=== PATIENT | female | born 2000 | race Caucasian/White ===

== ENCOUNTER 2021-11-09 11:37 | Emergency (ER) | payer MEDICAID, SELFPAY ==
--- NOTE | ~2021-11-09 | US_ITS ---
EXAMINATION: US OB <=14 wk fetus w TV INDICATION: 8 weeks preg, no US, current cramping. LMP 08/14/2021. GA by LMP 12 weeks 3 days. WALESKA by Theodore MP 05/21/2022. TECHNIQUE: Sonography of the pelvis was performed by transabdominal and transvaginal techniques. COMPARISON: None RESULT: Uterus: - Orientation: Anteverted - Size: 8.8 x 5.1 x 6.5 cm - Myometrium: homogeneous echogenicity Gestation: - Intrauterine gestational sac: Single present - Yolk sac: Present, not directly measured. - Embryo: Single present - [place] rump length: 2.4 cm, corresponding gestational age 9 weeks, 1 days -Gestational heart rate: present 166 bpm -Subgestational hematoma: Absent Right ovary: - Size : 3.6 x 2.1 x 1.8 cm - Normal sonographic appearance with physiologic follicles. Vascular flow is present. Left ovary: - Size: 3.6 x 1.9 x 1.5 cm - Normal sonographic appearance with physiologic follicles. Vascular flow is present. Pelvis free fluid: None. IMPRESSION: Single, live intrauterine gestation. Estimated Gestational Age: 9 weeks, 1 days by crown rump length. WALESKA by ultrasound 06/13/2022. Reviewed, dictated and finalized at location [facility]. IMPRESSION: Single, live intrauterine gestation. Estimated Gestational Age: 9 weeks, 1 days by crown rump length. WALESKA by ultras ound 06/13/2022.
[2021-11-09 11:42] VITALS: BP 124/74; PULSE 81; RESP 14; TEMP 36.6; O2SAT 99
[2021-11-09 12:12] LABS: Appearance Urine Slightly Cloudy (Clear); Bilirubin Urine Negative (Negative); Blood Urine Negative (Negative); Color Urine Yellow (Yellow); Glucose Urine UA Negative (Negative); Ketones Urine 1+ mg/dL (Negative); Leukocyte Esterase Ur Negative LEU/UL (Negative); Nitrate Urine Negative (Negative); Protein Urine Negative (Negative); Urobilinogen Urine 0.2 mg/dL (<2.0)
[2021-11-09 12:13] LABS: Basophils Percent Auto 0.3 % (0.2-1.2); Eosinophils Absolute Auto 0.1 K/mm3 (0-0.3); Eosinophils Percent Auto 0.5 % (0-4.4); Hematocrit 39.8 % (37.0-47.0); Hemoglobin 13.5 g/dL (12.0-15.0); Immature Granulocyte Absolute 0.04 K/mm3 (0.00-0.031); Immature Granulocyte Percent A 0.4 % (0-0.5); Lymphocytes Absolute Auto 2.04 K/mm3 (0.9-3.2); Mean Corpuscular HGB Conc 33.9 g/dl (32-36); Mean Corpuscular Hemoglobin 28.7 pg (26-34); Mean Corpuscular Volume 84.5 fl (80-100); Mean Platelet Volume 9.6 fl (7.4-10.4); Monocytes Absolute Auto 0.6 K/mm3 (0.1-0.6); Monocytes Percent Auto 5.3 % (2.6-8.5); Neutrophils Percent Auto 74.5 % (45.5-73.1); Platelet Count Result 264 k/mm3 (150-375); Red Blood Count 4.71 M/mm3 (4.2-5.4); Red Cell Distribution Width 13.2 % (11.5-14.5); White Blood Count 10.7 K/mm3 (4.5-10.0)
[2021-11-09 12:20] LABS: Mucus Urine Moderate /lpf; RBC Urine 0-2 /hpf (0-2); Squamous Epithelial Cell Urine Occasional /hpf (Few); WBC Urine 0-3 /hpf
[2021-11-09 12:22] LABS: Add Urine Microscopic? YES
[2021-11-09 12:24] LABS: Alanine Aminotransferase 22 U/L (6-35); Albumin Level 4.4 g/dL (3.5-5.1); Alkaline Phosphatase 66 U/L (38-126); Anion Gap 7 mmol/L (8-16); Aspartate Amino Transferase 25 U/L (14-36); Bilirubin,Total 0.4 mg/dL (0.2-1.3); Blood Urea Nitrogen 7 mg/dL (7-17); Calcium 9.1 mg/dL (8.4-10.2); Carbon Dioxide 22 mmol/L (22-30); Chloride 106 mmol/L (98-107); Estimated CRCL calculation 179 ml/min; Estimated Glomerular Filt Rate > 60; Glucose 85 mg/dL (65-110); Lipase 38 U/L (23-300); Sodium 135 mmol/L (137-145)
[2021-11-09 15:02] VITALS: BP 129/76; PULSE 80; RESP 18; O2SAT 99
[2021-11-09] MEDS: SODIUM CHLORIDE 0.9% IV 1,000 ML 999 ML IV CONT ×2 (15:35→18:28)
--- NOTE | 2021-11-09 16:00 | ED.GENADULT ---
HPI - General Adult General Chief complaint: Abdominal Pain Stated complaint: 8 weeks with cramping x 2 days Time Seen by Provider: 11/09/21 15:19 History of Present Illness HPI narrative: 21-year-old female presents to the emergency department for evaluation of lower abdominal cramping. Patient is approximately 8 weeks and has not yet had an ultrasound with this . This is the patient's third . 1 ended in miscarriage and one ended and elective . Patient reports that she has been drinking approximately 5 bottles of water a day. Patient denies any vaginal bleeding or vaginal discharge. Patient denies any pain with urination. Patient states that she has had some nausea and did have some emesis this morning. Patient denies any current chest pain or shortness of breath. Related Data Home Medications Medication Instructions Recorded Confirmed No Home Medications 11/09/21 11/09/21 Allergies Allergy/AdvReac Type Severity Reaction Status Date / Time Penicillins Allergy Swelling Verified 11/09/21 11:45 Review of Systems Review of Systems: CONSTITUTIONAL: Denies fever, chills, or sweats. EYES: Denies visual changes, redness, or discharge. ENT: Denies rhinorrhea, congestion, sore throat, or otalgia. CARDIOVASCULAR: Denies chest pain, palpitations, or edema. RESPIRATORY: Denies cough or dyspnea. GASTROINTESTINAL: See HPI GENITOURINARY: Denies dysuria or hematuria. SKIN: Denies rash or itching. MUSCULOSKELETAL: Denies back pain, joint pain, or myalgia. NEUROLOGIC: Denies headache, numbness, or weakness. Exam Narrative: APPEARANCE: Well appearing, no pain, no distress, well-nourished. HEAD: normocephalic, atraumatic. EYES: PERRLA/EOMI, conjunctivae clear. NOSE: Normal no drainage THROAT: Pharynx clear, no exudate. NECK: Supple. No adenopathy, no masses. RESPIRATORY: Airway patent, respirations nonlabored. Clear to auscultation bilaterally, no rales, rhonchi, wheezing. CARDIOVASCULAR: Regular rate and rhythm without murmurs rubs or gallops. ABDOMINAL: Soft, nontender, nondistended, normal bowel sounds MUSCULOSKELETAL: Moves all extremities. Strength/ROM intact, No edema, No calf tenderness. NEURO: Alert. Cranial nerves II through XII intact. Grossly intact SKIN: Warm, dry. Normal Color Course Vital Signs Vital signs: Vital Signs Temperature 97.9 F 11/09/21 11:42 Pulse Rate 81 11/09/21 11:42 Respiratory Rate 14 11/09/21 11:42 Blood Pressure 124/74 11/09/21 11:42 Pulse Oximetry 99 11/09/21 11:42 Oxygen Delivery Room Air 11/09/21 11:42 Temperature 97.9 F 11/09/21 11:42 Pulse Rate 88 11/09/21 19:19 Respiratory Rate 16 11/09/21 19:19 Blood Pressure 118/62 11/09/21 19:19 Pulse Oximetry 100 11/09/21 19:19 Oxygen Delivery Room Air 11/09/21 11:42 Medical Decision Making Vital Signs Vital Signs: Vital Signs Temperature 97.9 F 11/09/21 11:42 Pulse Rate 81 11/09/21 11:42 Respiratory Rate 14 11/09/21 11:42 Blood Pressure 124/74 11/09/21 11:42 Pulse Oximetry 99 11/09/21 11:42 Oxygen Delivery Room Air 11/09/21 11:42 Temperature 97.9 F 11/09/21 11:42 Pulse Rate 88 11/09/21 19:19 Respiratory Rate 16 11/09/21 19:19 Blood Pressure 118/62 11/09/21 19:19 Pulse Oximetry 100 11/09/21 19:19 Oxygen Delivery Room Air 11/09/21 11:42 Lab Data Lab results reviewed: Yes I reviewed the patient's lab results. Result diagrams: 11/09/21 12:00 11/09/21 12:00 Labs: Lab Results 11/09/21 11/09/21 11/09/21 Range/Units 12:00 12:00 12:00 WBC 10.7 H (4.5-10.0) K/mm3 RBC 4.71 (4.2-5.4) M/mm3 Hgb 13.5 (12.0-15.0) g/dL Hct 39.8 (37.0-47.0) % MCV 84.5 (80-100) fl MCH 28.7 (26-34) pg MCHC 33.9 (32-36) g/dl RDW 13.2 (11.5-14.5) % Plt Count 264 (150-375) k/mm3 MPV 9.6 (7.4-10.4) fl Immature Gran % (Auto)
[2021-11-09 16:30] LABS: Lactic Acid Reflex 0.8 mmol/L (0.7-2.0)
[2021-11-09 18:18] VITALS: PULSE 94; RESP 17; O2SAT 100
[2021-11-09 19:19] VITALS: BP 118/62; PULSE 88; RESP 16; O2SAT 100
--- NOTE | 2021-11-09 19:19 | PC.NURSE ---
Assumed care of pt at this time. Pt alert and upright on stretcher, requesting pain medication. EDP notified, orders placed.
== END 2021-11-09 19:47 | disposition home or self-care (01) ==
PROVIDERS: Emergency Provider Emergency Medicine; PCP Emergency Medicine
DX: O26.891 Other specified pregnancy related conditions, first trimester (principal); R10.30 Lower abdominal pain, unspecified; Z3A.09 9 weeks gestation of pregnancy
CPT/HCPCS: 36415; 76801; 76817; 80053; 81001; 83605; 83690; 85025; 96361; 96374; 99284; J0131; J7030